=== PATIENT | male | born 1970 | race Caucasian/White ===

== ENCOUNTER 2024-03-06 12:29 | Outpatient (CLI) | payer OTHER, SELFPAY ==
--- OUTSIDE RECORDS SUMMARY | 2024-03-06 12:33 | XMS_ITS | Clinical Summary ---
Author Name Unknown Organization [employer] [facility] Address [place], [place] [address] Care Team Providers Care Legal Recruiter Name Role Phone Minor Sims MD Unavailable [phone] Pcp, No Primary Care Provider Unavailabl e Allergies Active Allergy Reactions Criticality Noted Date Comments Hymenoptera Allergenic Extract Paroxetine 04/02/2011 rash Medications Medication Sig Dispensed Refills Start Date End Date Status meclizine (ANTIVERT) 12.5 mg tablet Take 2 tablets by mouth 3 times daily if needed. 100 tablet 6 08/26/2014 Active aspirin (ECOTRIN) 81 mg enteric coated tablet Take 1 tablet by mouth once daily with a meal. 0 07/19/2018 Active acetaminophen (TYLENOL EXTRA STRGTH) 500 mg tablet Take 1 tablet by mouth every 6 hours if needed. Max acetaminophen dose: 4000mg in 24 hrs. 0 09/15/2018 Active EPINEPHrine (EPIPEN) 0.3 mg/0.3 mL injectionIndications :Bee sting allergy Inject 0.3 mg intramuscular one time if needed (bee sting). Wait until they call for this. 2 Each 1 03/28/2019 Active penciclovir (DENAVIR) 1 % cream Apply topically to affected area every 2 hours while awake for 4 days when needed for cold sores. Active fexofenadine (OFELIA ALLERGY) 180 mg tablet Take 180 mg by mouth once daily with a meal. Active lisinopril-hydrochlo rothiazide, 20-25 mg, (PRINZIDE, ZESTORETIC) 20-25 mg per tabletIndications:HT N (hypertension) Take 1 tablet by mouth once daily. 90 tablet 3 03/28/2020 Active sertraline (ZOLOFT) 50 mg tabletIndications:Ad justment disorder with depressed mood,Anxiety state Take 3 tablets by mouth once daily. 90 tablet 11 03/28/2020 Active rosuvastatin (CRESTOR) 40 mg tabletIndications: CVD (arteriosclerotic cardiovascular disease) Take 1 tablet by mouth at bedtime. 90 tablet 3 03/28/2020 Active clopidogreL (PLAVIX) 75 mg tabletIndications: CVD (arteriosclerotic cardiovascular disease) Take 1 tablet by mouth once daily. 90 tablet 3 03/28/2020 Active nitroglycerin (NITROSTAT) 0.4 mg sublingual tabletIndications:Ch est pain in adult Place 1 tablet under the tongue every 5 minutes if needed for Chest Pain. Wait until they call for this. 30 tablet 2 03/28/2020 Active buPROPion (WELLBUTRIN SR) 150 mg Sustained-Release tabletIndications:To bacco use disorder Take 1 tablet by mouth 2 times daily. 180 tablet 3 05/19/2020 Active tiZANidine (ZANAFLEX) 4 mg tabletIndications:Mu sculoskeletal back pain Take 1 Tablet (4 mg) by mouth every 6 hours if needed for Muscle Spasm. 15 Tablet 02/15/2024 Active lidocaine 5 % topical patchIndications:Mus culoskeletal back pain Apply to intact skin to cover most painful area for max 12hr per 24hr period. 30 Patch 02/15/2024 Active Active Problems Problem Noted Date Diagnosed Date Chest pain 09/05/2019 Herpes labialis 08/20/2019 Overview: Uses Denavir cream for this. Tinnitus, bilateral 09/18/2018 Coronary artery disease of n ative artery of [place] heart with stable angina pectoris 09/15/2018 Essential hypertension 08/23/2018 Other hyperlipidemia 08/23/2018 Chest pain 07/24/2018 Abnormal stress test 07/24/2018 Overview: -Stress Myoview 07/05/2018 Small area of mild ischemia in the mid and apical inferior wall EF 70% Sensorineural hearing loss, bilateral 02/22/2014 Subjective tinnitus 02/22/2014 Other and unspecified alcohol dependence, in rem ission 07/08/2011 Adjustment disorder with depressed mood 06/11/20 11 Anxiety state, unspecified 03/01/2011 Sleep apnea 01/31/2011 Acute gastritis without mention of hemorrhage Overview: EGD 12/2010 gastritis Cysts of both kidneys 12/21/2010 Microhematuria 12/21/2010 Back pain 03/09/2010 Neck pain 03/09/2010 Tobacco use disorder 09/27/2008 Overview: Quit smoking within the past month as of 08/23/2018. Kidney stone 08/21/2008 Hyperlipidemia 11/07/2007 Overview: High intensity statin therapy. Diverticulosis of colon (without mention of hemo rrhage) 08/29/2007 Migraine, unspecified, witho ut mention of intractable migraine without mention of status migrainosus Lumbago Resolved Problems Problem Noted Date Diagnosed Date Resolved Date HTN (hypertension) 12/08/2010 8 Diverticulitis of colon (wit hout mention of hemorrhage) 08/29/2007 Major depressive disorder, r ecurrent episode, mild 07/08/2010 Encounters Date Type Department Care Team Description 02/15/2024 12:33 PM CDT - 02/15/2024 1:50 [place] [address] Selena Ash NP Musculoskeletal back pain (Primary Dx); Strain of right trapezius muscle, initial encounter Discharge Disposition: Home Self Care 02/15/2024 Travel from Last 3 Months Immunizations Name Administration Dates Next Due AMB Influenza, IIV3 (Age >=3 years)(Flu Clinic Only) 08/02/2012,08/12/2011,08/01/2009,2007 Influenza, IIV3 (Age 6-35 mos) 08/12/2011 Influenza, IIV3 (Age >=3 years) 11/02/19 14,08/02/2012,08/01/2009,2007,08/29/2007,08/27/2003 Influenza, IIV4 09/12/2019,10/07/2016,10/09/2014 Td, Preservative Free (age > = 7 Years) 10/07/2016 Tdap 03/27/2006 Family History Medical History Relation Name Comments Alcohol/Drug Father both Heart Disease Father [place] in his 40s Other Father Father of diverticulitis Cancer Mother of throat cancer at 69 Relation Name Status Comments Brother 1 Alive Brother 2 Alive Brother 3 Alive Father Mother Alive Sister 1 Alive Sister 2 Alive Social History Tobacco Use Types Packs/Day Years Used Date Smoking Tobacco: Some Days Cigarettes 1 40 Smokeless Tobacco: Never Tobacco Cessation:Ready to Q uit: No; Counseling Given: Yes Comments:Quit 07/24/2018 and started again 1pd; 1 cig / month as of 09/11. Alcohol Use Standard Drinks/Week Comments No 0 (1 standard drink = 0.6 oz pur e alcohol) PHQ-2 Answer Date Recorded PHQ-2 TOTAL SCORE 1 03/28/2020 Social Connections Answer Date Recorded Frequency of Communication with Friends and Fami ly Not on file 10/24/2021 Financial Resource Strain Answer Date R ecorded Difficulty of Paying Living Expenses Not on file 10/24/2021 Difficulty of Paying Living Expenses Not on file 10/24/2021 Sex and Gender Information Value Date Recorded Sex Assigned at Not on file Gender Identity Not on file Sexual Orientation Not on file Obstetrics History Last Filed Vital Signs Vital Sign Reading Time Taken Comments Blood Pressure 142/91 02/15/2024 12:38 PM CDT Pulse 88 02/15/2024 12:35 PM CDT Temperature 36.7 ??C (98 ??F) 02/15/2024 12:35 PM CDT Respiratory Rate 16 02/15/2024 12:35 PM CDT Oxygen Saturation 98% 02/15/2024 12:35 PM CDT Inhaled Oxygen Concentration - - Weight 78.5 kg (173 lb) 02/15/2024 12:36 PM CDT Height 185.4 cm (6' 1) 02/15/2024 12:36 PM CDT Body Mass Index 22.82 02/15/2024 12:36 PM CDT Plan of Treatment Health Maintenance Due Date Last Done Comments HIV for age 15-65 1983 Hepatitis C screening for age 18-79 1986 Zoster (shingles) series for age 50+ (1 of 2) 2018 BMI (ht and wt on same day) for age 18+ 09/12/2020 09/12/2019, 09/05/2019, 03/28/2019, Additional history exists Depression screening for age 12+ 03/28/2021 03/28/2020, 03/28/2019, 03/26/2019, Additional history exists COVID-19 vaccine series (2022- season) 2023 Lipids for age 45-75 03/27/2024 03/27/2019, 10/20/2018, 08/23/2018, Additional history exists Influenza for age 50-64 06/24/2024 09/12/20 19, 10/07/2016, 10/09/2014, Additional history exists Tetanus booster 10/07/2026 10/07/2016, 03/27/2006 Colonoscopy through age 75 04/24/202904/24, 04/24/2019, 04/24/2019, Additional history exists Tdap Completed 03/27/2006 Pneumococcal series for age 6-64 Aged Out No longer eligible based on patient's age to complete this topic Procedures Procedure Name Priority Date/Time Associated Diagnosis Comments XR CHEST 1 VIEW PORTABLE STAT 02/15/2024 1:14 PM CDT COLONOSCOPY SCREENING Routine 04/24/2019 11:14 AM CDT Screening for colon cancer LIPID PANEL W REFLEX MEASURED LDL Routine 03/27/2019 9:51 AM CDT Coronary artery disease involving [place] coronary artery of [place] heart without angina pectoris from Last 3 Months or Most Recently Relevant to Health Maintenance Results * XR CHEST 1 VIEW PORTABLE (02/15/2024 1:14 PM CDT) Anatomical Region Laterality Modality HEART, THORAX, CHEST Digital Rad iography 02/15/2024 1:38 PM CDT Impressions 02/15/2024 1:38 PM CDT Patchy airspace opacity laterally in the right mid lung, probably inflammatory. Dictated by Bryce Do MD @ 02/15/2024 1:38:48 PM (Electronically Signed) Narrative 02/15/2024 1:38 PM CDT For Patients: ??As a result of the Cures Act, medical imaging exams and procedure reports are released immediately into your electronic medical record. ??You may view this report before your referring provider. ??If you have questions, please contact your health care provider. INDICATION: Cough COMPARISON: October 09, 2019 TECHNIQUE: Single view study FINDINGS: TUBES AND LINES: None. HEART AND MEDIASTINUM: The heart size is normal. The mediastinal contour appears normal for patient age. LUNGS AND PLEURAL SPACES: Patchy airspace opacity laterally in the right mid lung, likely inflammatory.The pleural spaces are unremarkable. OSSEOUS STRUCTURES: Age-appropriate appearance. No acute focal finding. Procedure Note Bryce Do MD - 02/15/2024 For Patients: As a result of the Cures Act, medical imagingexams and procedure reports are released immediately into your electronicmedical record. You may view this report before your referring provider.If you have questions, please contact your health care provider. INDICATION: Cough COMPARISON: October 09, 2019 TECHNIQUE: Single view study FINDINGS: TUBES AND LINES: None. HEART AND MEDIASTINUM: The heart size is normal. The mediastinal contourappears normal for patient age. LUNGS AND PLEURAL SPACES: Patchy airspace opacity laterally in the rightmid lung, likely inflammatory.The pleural spaces are unremarkable. OSSEOUS STRUCTURES: Age-appropriate appearance. No acute focal finding. IMPRESSION: Patchy airspace opacity laterally in the right mid lung, probablyinflammatory. Dictated by Bryce Do MD @ 02/15/2024 1:38:48 PM (Electronically Signed) Selena Ash NP [facility] * COLONOSCOPY SCREENING (04/24/2019 11:14 AM CDT) Minor Sims MD GI PROCEDURE ORD * (ABNORMAL) LIPID PANEL W REFLEX MEASURED LDL (03/27/2019 9:51 AM CDT) CHOLESTEROL,TOTAL 123 100 - 199 mg/dL 03/27/2019 4:53 PM CDT [facility] TRIGLYCERIDES 82 <150 mg/dL 03/27/2019 4:53 PM CDT [facility] HDL CHOLESTEROL 40(L) >40 mg/dL 9 4:53 PM CDT [facility] NON-HDL CHOLESTEROL 83 <145 mg/dl 03/27/2019 4:53 PM CDT [facility] CHOL/HDL RATIO 3.08 <4.50 03/27/2019 4:53 PM CDT [facility] LDL CHOLESTEROL 67 <=130 mg/dL 03/27/2019 4:53 PM CDT [facility] PROVIDER ORDERED STATUS RANDOM 03/27/2019 4:53 PM CDT [facility] Blood BLOOD SPECIMEN / Unknown Venipuncture / Unknown 03/27/2019 9:51 AM CDT 03/27/2019 9:51 AM CDT Minor Sims MD [facility] [address] [place] [address], from Last 3 Months or Most Recently Relevant to Health Maintenance Advance Directives Documents on File Type Date Recorded Patient Debt Management Counselor Expl anation Healthcare Directive 10/29/2010 12:00 AM AD BOTELLO DIRECTIVE * Full Code (Latest Code Status on File) Date Activated Date Inactivated Comments 09/05/2019 4:07 PM 09/06/2019 1:24 PM * Full Code Date Activated Date Inactivated Comments 07/24/2018 9:29 AM 07/25/2018 5:12 PM Care Teams Legal Recruiter Relationship Specialty Start Date End Date Pcp, No . PCP - General 04/30/21 Minor Sims MD [facility] [place] [address] 06/29/11
== END 2024-03-06 12:30 | disposition home or self-care (01) ==
PROVIDERS: Visit Provider Family Medicine
DX: Z00.00 Encounter for general adult medical examination without abnormal findings (principal); E78.5 Hyperlipidemia, unspecified; I10 Essential (primary) hypertension; Z12.5 Encounter for screening for malignant neoplasm of prostate
CPT/HCPCS: 80053; 80061; 81001; 85025; G0103

== ENCOUNTER 2024-03-22 14:28 | Outpatient (CLI) | payer OTHER, SELFPAY ==
--- OUTSIDE RECORDS SUMMARY | 2024-03-22 14:30 | XMS_ITS | Clinical Summary ---
Author Organization [employer] [facility] Address [place], [place] [address] Care Team Providers Care Six Sigma Black Trainer Name Role Phone Minor Sims MD Unavailable Pcp, No Primary Care Provider Unavailabl e [...] artery disease of n ative artery of [place] heart with stable angina pectoris 09/15/2018 Essential [...] CDT - 02/15/2024 1:50 PM CDT Emergency [address] [address] Selena Ash, RAFA Musculoskeletal back pain (Primary Dx); Strain of [...] Comments Alcohol/Drug Father both Heart Disease Father [place] in his 40s Other Father Father of [...] Given: Yes Comments:Quit 07/24/2018 and started again 1/2ppd; 1 cig / month as of 09/11. [...] 03/26/2019, Additional history exists COVID-19 vaccine series (2022-24 season) 2023 Lipids for age 45-75 03/27/2024 [...] 9:51 AM CDT Coronary artery disease involving [place] coronary artery of [place] heart without angina pectoris from Last 3 [...] For Patients: ??As a result of the Century Cures Act, medical imaging exams and procedure [...] 02/15/2024 1:38:48 PM (Electronically Signed) Selena Ash SOLDERER [facility] * COLONOSCOPY SCREENING (04/24/2019 11:14 AM CDT) Minor Sims MD GI PROCEDURE ORD * (ABNORMAL) LIPID PANEL W REFLEX MEASURED LDL (03/27/2019 9:51 AM CDT) CHOLESTEROL,TOTAL 123 100 - 199 mg/dL 03/27/2019 4:53 PM CDT [facility]ORATORY TRIGLYCERIDES 82 <150 mg/dL 03/27/2019 4:53 PM CDT [facility] HDL CHOLESTEROL 40(L) >40 mg/dL 9 4:53 PM CDT [facility] NON-HDL CHOLESTEROL 83 <145 mg/dl 03/27/2019 4:53 PM CDT [facility]OR[facility] CHOL/HDL RATIO 3.08 <4.50 03/27/2019 4:53 PM CDT [facility] LDL CHOLESTEROL 67 <=130 mg/dL 03/27/2019 4:53 PM CDT [facility] PROVIDER ORDERED STATUS RANDOM 03/27/2019 4:53 PM CDT [facility] Blood BLOOD SPECIMEN / Unknown Venipuncture / Unknown 03/27/2019 9:51 AM CDT 03/27/2019 9:51 AM CDT Minor Sims MD [facility] [address] [place] [address], [place] from Last 3 Months or Most Recently Relevant to Health Maintenance Advance Directives Documents on File Type Date Recorded Patient Putty Maker Expl anation Healthcare Directive 10/29/2010 12:00 AM AD BOTELLO DIRECTIVE * Full Code (Latest Code Status on File) Date Activated Date Inactivated Comments 09/05/2019 4:07 PM 09/06/2019 1:24 PM * Full Code Date Activated Date Inactivated Comments 07/24/2018 9:29 AM 07/25/2018 5:12 PM Care Teams Six Sigma Black Trainer Relationship Specialty Start Date End Date Pcp, No . PCP - General 04/30/21 Minor Sims MD [facility] [place] [address] 06/29/11
--- NOTE | 2024-03-22 15:00 | CRLHL7_ITS ---
For Patients: As a result of the Century Cures Act, medical imaging exams and procedure reports are released immediately into your electronic medical record. You may view this report before your referring provider. If you have questions, please contact your health care provider. INDICATION: Hematuria, nausea and weight loss. Concern for renal or bladder cancer.. TECHNIQUE: CT chest, abdomen and pelvis acquired with 84 cc Isovue 370 IV contrast. COMPARISON: None. FINDINGS: CHEST: Lower neck and chest wall: Unremarkable thyroid. No chest wall mass or axillary lymphadenopathy. Mediastinum and boni: No mediastinal or hilar lymphadenopathy. Heart and vasculature: Moderate/severe coronary artery calcification and possible stent. No cardiomegaly. Unremarkable thoracic aorta. Lungs: Clear. No pulmonary mass or consolidation. Pleura: Normal. No pleural mass, pleural effusion or pneumothorax. Bones: Unremarkable for patient???s age. No acute fracture or suspicious bone lesion. ABDOMEN AND PELVIS: Liver: 15 mm left hepatic lobe cyst. Too small to accurately characterize low-density lesions within the left and right lobes (images 148 and 141, series 2). Gallbladder and bile ducts: Status post cholecystectomy. Pancreas: Unremarkable. No mass or inflammation. Spleen: Normal in size. No masses. Adrenal glands: Normal in size. No nodules. Kidneys, ureters and urinary bladder: Bilateral renal cysts. Bilateral renal low-density lesions, too small to accurately characterize. Punctate nonobstructing stone in the right kidney lower pole (image 186, series 4). No ureteral stone or hydronephrosis. Mild generalized wall thickening of the urinary bladder is indeterminate and may be secondary to incomplete distention, cystitis or other urinary bladder wall abnormality. GI tract: Mild colonic diverticulosis. Unremarkable stomach and small bowel. No appendicitis. Vasculature: Mild atherosclerosis of the abdominal aorta. No aneurysm. Lymph nodes: No lymphadenopathy. Peritoneum: Unremarkable. No sign of mass or infiltration. No free air or significant free fluid. Pelvis: Unremarkable prostate. Abdominal wall: Unremarkable. No mass or bowel containing hernia. Bones: Unremarkable for patient???s age. No acute fracture or suspicious bone lesion. IMPRESSION: 1. Moderate/severe coronary artery calcification with possible coronary artery stent. 2. Hepatic cyst and too small to accurately characterize hepatic low-density lesions. 3. Bilateral renal cysts. Bilateral renal low-density lesions, too small to accurately characterize. These could be further evaluated with MRI of the abdomen. 4. Right nephrolithiasis. 5. Generalized wall thickening of the urinary bladder, indeterminate. These changes may be secondary to incomplete distention, cystitis or other urinary bladder wall abnormality. 6. Mild colonic diverticulosis. Please note that all CT scans at this facility use dose modulation, iterative reconstruction, and/or weight-based dosing when appropriate to reduce radiation dose to as low as reasonably achievable. Dictated by Garrison Durant MD @ 03/23/2024 1:29:45 PM (Electronically Signed)
== END 2024-03-22 14:29 | disposition home or self-care (01) ==
PROVIDERS: PCP Family Medicine; Visit Provider Family Medicine
DX: R31.9 Hematuria, unspecified (principal); R63.4 Abnormal weight loss; I25.10 Atherosclerotic heart disease of native coronary artery without angina pectoris; K76.89 Other specified diseases of liver; N20.0 Calculus of kidney; K57.30 Diverticulosis of large intestine without perforation or abscess without bleeding
CPT/HCPCS: 71260; 74177; Q9967

== ENCOUNTER 2024-04-30 08:06 | Outpatient (CLI) | payer OTHER, SELFPAY ==
--- OUTSIDE RECORDS SUMMARY | 2024-04-30 08:08 | XMS_ITS | Clinical Summary ---
Author Organization [employer] [facility] Address [place], [place] [address] Care Team Providers Care Share Holder Name Role Phone Minor Sims MD Unavailable [phone] Pcp, No Primary Care Provider Unavailabl e [...] artery disease of n ative artery of [place] heart with stable angina pectoris 09/15/2018 Essential [...] CDT - 02/15/2024 1:50 PM CDT Emergency [address] [address] Selena Ash NP Musculoskeletal back pain (Primary [...] Given: Yes Comments:Quit 07/24/2018 and started again 12ppd; 1 cig / month as of 09/11. [...] 9:51 AM CDT Coronary artery disease involving [place] coronary artery of [place] heart without angina pectoris from Last 3 [...] For Patients: As a result of the Century Cures Act, medical imagingexams and procedure reports [...] - 199 mg/dL 03/27/2019 4:53 PM CDT [facility] TRIGLYCERIDES 82 <150 mg/dL 03/27/2019 4:53 PM CDT [facility] HDL CHOLESTEROL 40(L) >40 mg/dL 9 4:53 PM CDT [facility] NON-HDL CHOLESTEROL 83 <145 mg/dl 03/27/2019 4:53 PM CDT [facility] CHOL/HDL RATIO 3.08 <4.50 03/27/2019 4:53 PM CDT [facility] LDL CHOLESTEROL 67 <=130 mg/dL 03/27/2019 4:53 PM CDT [facility] PROVIDER ORDERED STATUS RANDOM 03/27/2019 4:53 PM CDT [facility] Blood BLOOD SPECIMEN / Unknown Venipuncture / Unknown 03/27/2019 9:51 AM CDT 03/27/2019 9:51 AM CDT Minor Sims MD [facility] [address] [place] [address], from Last 3 Months or Most Recently Relevant to Health Maintenance Advance Directives Documents on File Type Date Recorded Patient Intake Counselor Expl anation Healthcare Directive 10/29/2010 12:00 AM AD BOTELLO DIRECTIVE * Full Code (Latest Code Status on File) Date Activated Date Inactivated Comments 09/05/2019 4:07 PM 09/06/2019 1:24 PM * Full Code Date Activated Date Inactivated Comments 07/24/2018 9:29 AM 07/25/2018 5:12 PM Care Teams Share Holder Relationship Specialty Start Date End Date Pcp, No . PCP - General 04/30/21 Minor Sims MD [facility] [place] [address] 06/29/11
--- NOTE | 2024-04-30 11:08 | W.ANESCHARGE ---
Anesthesia Charges Start Date/Time Anesthesia Start Date: 04/30/24 Anesthesia Start Time: 10:25 Stop Date/Time Anesthesia Stop Date: 04/30/24 Anesthesia Stop Time: 11:06
--- NOTE | 2024-04-30 12:24 | W.ANESCHARGE ---
Anesthesia Charges Start Date/Time Anesthesia Start Date: 04/30/24 Anesthesia Start Time: 10:25 Stop Date/Time Anesthesia Stop Date: 04/30/24 Anesthesia Stop Time: 11:06
== END 2024-04-30 08:07 | disposition home or self-care (01) ==
LOC: OP CLINIC 08:07
PROVIDERS: PCP Family Medicine; Visit Provider Internal Medicine
DX: Z12.11 Encounter for screening for malignant neoplasm of colon (principal); K63.5 Polyp of colon; K57.30 Diverticulosis of large intestine without perforation or abscess without bleeding; R12 Heartburn
CPT/HCPCS: 00731; 00813; 43239; 45380; 88305; J2704

== ENCOUNTER 2024-05-10 15:04 | Outpatient (CLI) | payer OTHER, SELFPAY ==
--- OUTSIDE RECORDS SUMMARY | 2024-05-13 09:31 | XMS_ITS | Clinical Summary ---
Author Organization [facility] Address [place], [place] [address] Care Team Providers Care Public Relations Studies Director Name Role Phone Minor Sims MD Unavailable [phone] Pcp, No Primary Care Provider Unavailabl e [...] artery disease of n ative artery of [place] heart with stable angina pectoris 09/15/2018 Essential [...] Encounters Date Type Department Care Team Description 05/11/2024 Lab Requisition [facility] [phone] Unknown, Doctor 04/30/2024 Lab Requisition [facility] [phone] Andrew Hansen MD 02/15/2024 12:33 PM CDT - 02/15/2024 1:50 PM CDT Emergency [address] [address] Selena Ash NP Musculoskeletal back pain (Primary [...] Comments Alcohol/Drug Father both Heart Disease Father MA in his 40s Other Father Father of [...] history exists Influenza for age 50-64 06/24/2024 09/12/20, 10/07/2016, 10/09/2014, Additional history exists Tetanus booster 10/07/2026 10/07/2016, 03/27/2006 Colonoscopy through age 73 04/24/202904/24, 04/24/2019, 04/24/2019, Additional history exists Tdap Completed 03/27/2006 Pneumococcal series for age 6-64 Aged Out No longer eligible based on patient's age to complete this topic Procedures Procedure Name Priority Date/Time Associated Diagnosis Comments CRYSTAL ID BODY FLUID NO URINE Routine 05/10/2024 3:04 PM CDT PATH TISSUE EXAM Routine 04/30/2024 10:5 5 AM CDT LAB TRACKING EVENT Routine 04/30/2024 10 :35 AM CDT XR CHEST 1 VIEW PORTABLE STAT 02/15/2024 1:14 PM CDT COLONOSCOPY SCREENING Routine 04/24/2019 11:14 AM CDT Screening for colon cancer LIPID PANEL W REFLEX MEASURED LDL Routine 03/27/2019 9:51 AM CDT Coronary artery disease involving [place] coronary artery of [place] heart without angina pectoris from Last 3 Months or Most Recently Relevant to Health Maintenance Results * CRYSTAL ID BODY FLUID NO URINE (05/10/2024 3:04 PM CDT) MONOSODIUM URATES None Seen None Seen, Present, Not Present 05/12/2024 11:28 AM CDT [facility] CALCIUM PYROPHOSPHATES None Seen None Seen, Present, Not Present 05/12/2024 11:28 AM CDT [facility] OTHER CRYSTALS No crystals seen 05/12/2024 11:28 AM CDT [facility] SPECIMEN SOURCE Synovial 05/12/2024 11:28 AM CDT [facility] Body Fluid BODY FLUID SPECIMEN / Unknown Client Collect / Unknown 05/10/2024 3:04 PM CDT 05/11/2024 1:24 PM CDT Doctor Unknown BODY FLUID [facility] [address] [place] [address], * PATH TISSUE EXAM (04/30/2024 10:55 AM CDT) Case Report Pathology Report ?Case: [id number] ? Authorizing Provider: ??Andrew Hansen MD ?Collected: ? 04/30/2024 1055 ? Ordering Location: ? [facility] ?Received: ?05/01/2024 1014 ? Pathologist: ? Nitin Walker MD ? Specimens: ?? A) - Duodenum Biopsy ? B) - Stomach Biopsy ? C) - Distal Esophagus Biopsy ? D) - Mid Esophagus Biopsy ? E) - Sigmoid Biopsy ? 05/02/2024 9:47 AM CDT [facility] Final Diagnosis A) DUODENUM, BIOPSY: 1. Normal duodenal mucosa 2. Negative for celiac disease and other enteropathy B) STOMACH, BIOPSY: 1. Gastric antral and body mucosae with no diagnostic abnormalities 2. Negative for Helicobacter C) ESOPHAGUS, DISTAL, BIOPSY: 1. Squamous mucosa with nonspecific regenerative change, cannot exclude reflux 2. Negative for eosinophilic esophagitis 3. Gastric cardia type mucosa with nonspecific reactive changes D) ESOPHAGUS, MID, BIOPSY: 1. Normal esophageal squamous mucosa 2. Negative for reflux changes and eosinophilic esophagitis 3. Negative for columnar mucosa E) COLON, SIGMOID, POLYPECTOMY: 1. Tubular adenoma 2. Negative for high grade dysplasia 3. Per the colonoscopy report: ?? a. Polyp size: 4 mm ?? b. Resection: Complete ?? c. Retrieval: Complete 05/02/2024 9:47 AM CDT [facility] [employer] [facility] Clinical Information Heartburn. Suspected reflux. Upper GI endoscopy showed no mucosal abnormalities. Sigmoid polyp. 05/02/2024 9:47 AM CDT [facility] [facility] Gross Description A) Received in formalin is a george mucosal fragment measuring 4 mm in greatest dimension, which is entirely submitted in one cassette. It is labeled with the patient's name and designated duodenum. B) Received in formalin are 4 george mucosal fragments ranging from 3 mm to 5 mm in greatest dimension, which are entirely submitted in one cassette. It is labeled with the patient's name and designated random stomach. C) Received in formalin is a george mucosal fragment measuring 4 mm in greatest dimension, which is entirely submitted in one cassette. It is labeled with the patient's name and designated distal esophagus. D) Received in formalin are 2 george mucosal fragments averaging 3 mm in greatest dimension, which are entirely submitted in one cassette. It is labeled with the patient's name and designated mid esophagus. E) Received in formalin are 4 george mucosal fragments ranging from 3 mm to 4 mm in greatest dimension, which are entirely submitted in one cassette. It is labeled with the patient's name and designated sigmoid polyp. Carrie Crouch 05/01/2024 1:21 PM 05/02/2024 9:47 AM CDT [facility] Microscopic Description The final diagnosis is based on microscopic examination of appropriate sections of all specimens. 05/02/2024 9:47 AM T [facility] Additional Information Interpreted at [facility] [employer] [facility], Central Laboratory - [address], [place] [address] 05/02/2024 9:47 AM T [facility] [employer] [facility] Other (Duodenum Biopsy) 04/30/2024 10:55 AM CDT 05/01/2024 10:14 AM CDT Specimen (specimen) (Stomach Biopsy) 04/30/2024 10:55 AM CDT 05/01/2024 10:14 AM CDT Specimen (specimen) (Distal Esophagus Biopsy) 04/30/2024 10:55 AM CDT 05/01/2024 10:14 AM CDT Specimen (specimen) (Mid Esophagus Biopsy) 04/30/2024 10:55 AM CDT 05/01/2024 10:14 AM CDT Specimen (specimen) (Sigmoid Biopsy) 04/30/2024 10:55 AM CDT 05/01/2024 10:14 AM CDT Andrew Hansen MD PATHOLOGY/CYTOLOGY Performing Organization Address [facility] Co de Phone Number [facility] [address] [address], [place] * LAB TRACKING EVENT (04/30/2024 10:35 AM CDT) Other (Other) Client Collect / Unknown 04/30/2024 10:35 AM CDT 04/30/2024 10:00 PM CDT Andrew Hansen MD LAB BILL ONLY Performing Organization Address [facility] de Phone Number [facility] [address] [address], [place] * XR CHEST 1 VIEW PORTABLE (02/15/2024 [...] 02/15/2024 1:38:48 PM (Electronically Signed) Selena Ash [employer] * COLONOSCOPY SCREENING (04/24/2019 11:14 AM CDT) Minor Sims MD GI PROCEDURE ORD * (ABNORMAL) LIPID PANEL W REFLEX MEASURED LDL (03/27/2019 9:51 AM CDT) CHOLESTEROL,TOTAL 123 100 - 199 mg/dL 03/27/2019 4:53 PM CDT [facility] TRIGLYCERIDES 82 <150 mg/dL 03/27/2019 4:53 PM CDT [facility] HDL CHOLESTEROL 40(L) >40 mg/dL 9 4:53 PM CDT [facility] NON-HDL CHOLESTEROL 83 <145 mg/dl 03/27/2019 4:53 PM CDT [facility] CHOL/HDL RATIO 3.08 <4.50 03/27/2019 4:53 PM CDT [facility] LDL CHOLESTEROL 67 <=130 mg/dL 03/27/2019 4:53 PM CDT [facility] PROVIDER ORDERED STATUS RANDOM 03/27/2019 4:53 PM CDT [facility] Blood BLOOD SPECIMEN / Unknown Venipuncture / Unknown 03/27/2019 9:51 AM CDT 03/27/2019 9:51 AM CDT Minor Sims MD CHEMISTRY [facility] [address] [place] [address], from Last 3 Months or Most Recently Relevant to Health Maintenance Advance Directives Documents on File Type Date Recorded Patient Fiscal Specialist Expl anation Healthcare Directive 10/29/2010 12:00 AM AD [employer] DIRECTIVE * Full Code (Latest Code Status on File) Date Activated Date Inactivated Comments 09/05/2019 4:07 PM 09/06/2019 1:24 PM * Full Code Date Activated Date Inactivated Comments 07/24/2018 9:29 AM 07/25/2018 5:12 PM Care Teams Public Relations Studies Director Relationship Specialty Start Date End Date Pcp, No . PCP - General 04/30/21 Minor Sims MD [facility] [place] [address] 06/29/11"
== END 2024-05-10 15:05 | disposition home or self-care (01) ==
LOC: NFLDREF 05-13 09:29
PROVIDERS: PCP Family Medicine; Referring Provider Family Medicine; Visit Provider Orthopaedic Surgery
DX: M71.122 Other infective bursitis, left elbow (principal); B95.61 Methicillin susceptible Staphylococcus aureus infection as the cause of diseases classified elsewhere
CPT/HCPCS: 86140; 87070; 87075; 87186; 87205; 89051; 89060

== ENCOUNTER 2024-11-22 13:43 | Outpatient (CLI) | payer OTHER, SELFPAY | END 2024-11-22 13:44 | disposition home or self-care (01) | LOC: RAD 13:44 | PROVIDERS: PCP Family Medicine; Visit Provider Family Medicine | DX: N32.89 Other specified disorders of bladder (principal); R93.41 Abnormal radiologic findings on diagnostic imaging of renal pelvis, ureter, or bladder | CPT/HCPCS: 78815; A9552 ==